=== PATIENT | male | born 1970 | race Caucasian/White ===

== ENCOUNTER 2023-07-10 18:26 | Emergency (ER) | payer OTHER, SELFPAY ==
[2023-07-10 18:32] VITALS: BP 112/78; PULSE 118; RESP 20; TEMP 36.5; O2SAT 99
[2023-07-10] MEDS: FLUORESCEIN SOD 1 MG/STRIP EACH EYE (20:16)
[2023-07-10] MEDS: TETRACAINE HCL 0.5% OPHTH SOLN 4 ML BTL 1 DROP EACH EYE (20:17)
--- NOTE | 2023-07-10 20:18 | ED.EYEPROB ---
HPI - Eye Problem General Chief complaint: Eye Problems Stated complaint: left eye Time Seen by Provider: 07/10/23 19:32 History of Present Illness HPI Narrative: Patient is a 53-year-old male presenting with left eye pain. Patient states that he was poked in the eye by a 4-year-old with very long nails. He was seen by urgent care yesterday and diagnosed with a corneal abrasion. He was prescribed eyedrops which she has been using as prescribed. States that he continues to have pain and significant photosensitivity. He has an appointment with ophthalmology in 2 days. States that he continues to have blurry vision. No other injuries or complaints. Related Data Allergies Allergy/AdvReac Type Severity Reaction Status Date / Time No Known Allergies Allergy Verified 07/10/23 18:27 Review of Systems Review of Systems: All systems reviewed & are unremarkable except as noted in HPI and below Exam Narrative: GENERAL: Well-appearing, uncomfortable secondary to ocular pain HEAD: Normocephalic, atraumatic. EYES: Left conjunctive a injected, tearful with the lights on, pupils are equal and reactive bilaterally ENT: No gross abnormalities CHEST: No respiratory distress. HEART: Regular rate and rhythm ABDOMEN: Nondistended EXTREMITIES: Normal range of motion SKIN: Dry NEURO: Alert and oriented x3. PSYCH: Normal mood and affect. Course Vital Signs Vital signs: Vital Signs Temperature 97.7 F 07/10/23 18:32 Pulse Rate 118 H 07/10/23 18:32 Respiratory Rate 20 07/10/23 18:32 Blood Pressure 112/78 07/10/23 18:32 Pulse Oximetry 99 07/10/23 18:32 Oxygen Delivery Room Air 07/10/23 18:32 Temperature 98.0 F 07/10/23 21:06 Pulse Rate 86 07/10/23 21:06 Respiratory Rate 17 07/10/23 21:06 Blood Pressure 138/86 07/10/23 21:06 Pulse Oximetry 99 07/10/23 21:06 Oxygen Delivery Room Air 07/10/23 18:32 MDM - Eye Problem MDM Narrative Medical decision making narrative: Patient is a 53-year-old male presenting with persistent eye pain in the setting of corneal abrasion. Fluorescein exam confirms corneal abrasion just medial to the left pupil. Patient already has ofloxacin drops. Also give him some erythromycin ointment for further lubrication and prevention of infection as the abrasion is rather sizable. We will also give him some diclofenac ophthalmic drops for his severe pain. He already has an appointment with his package maker in 2 days. Strongly advised that he keep this appointment. Strict return precautions given. Patient voiced understanding and is agreeable with plan. Discharged in stable condition. Differential Diagnosis Differential diagnosis: Likely corneal abrasion, conjunctivitis, acute iritis, periorbital cellulitis and corneal ulcer Medical Records Attestation: I reviewed the patient's medical records. Critical Care Time Critical Care Time Critical Care Time: No Discharge Plan Discharge Clinical Impression: Corneal abrasion Patient Disposition: Home, Self-Care Condition: Stable Instructions: Antibiotic Form, Corneal Abrasion (DC) Additional Instructions: Continue taking the drops that you were prescribed by urgent care. We have provided eyedrops for pain -you may use this by instilling 1 to 2 drops into your left eye every 6 hours for the next 2 to 3 days. We have also provided an ointment to be used to prevent infection. Please apply this every six hours for the next 2 days. Please make sure to keep the appointment with your eye doctor. If your symptoms worsen, you develop chest pain, shortness of breath, numbness or weakness, vomiting, fevers >100.4F, or other concerning symptoms arise, please return to the ER. Follow-up/Referrals: UNKNOWN,DOCTOR [Primary Care Provider] -
[2023-07-10] MEDS: ERYTHROMYCIN OPHTH OINTMENT 1 GM TUBE 1 APPLIC EACH EYE (21:00)
[2023-07-10] MEDS: DICLOFENAC SODIUM 0.1% OPHTH SOLN 2.5 ML BOTTLE 1 DROP LEFT EYE (21:00)
[2023-07-10 21:06] VITALS: BP 138/86; PULSE 86; RESP 17; TEMP 36.7; O2SAT 99
== END 2023-07-10 21:07 | disposition home or self-care (01) ==
PROVIDERS: Emergency Provider Emergency Medicine
DX: S05.02XA Injury of conjunctiva and corneal abrasion without foreign body, left eye, initial encounter (principal); W51.XXXA Accidental striking against or bumped into by another person, initial encounter
CPT/HCPCS: 99283; A9270

== ENCOUNTER 2023-08-10 16:50 | Emergency (ER) | payer OTHER, SELFPAY ==
--- NOTE | ~2023-08-10 | XR_ITS ---
EXAMINATION: XR foot RT min 3V DATE: 08/10/2023 18:04 INDICATION: Diabetic ulcer TECHNIQUE: Dorsoplantar, two oblique and lateral views of the right foot were obtained. COMPARISON: None. FINDINGS: Alignment is normal. No fracture. No cortical erosions or periostitis to suggest osteomyelitis. Sawyer ening of the articular surface of the head of the second metatarsal with subtle underlying subarticul ar sclerosis suggestive of osteonecrosis/Freiberg's infraction. Mild polyarticular osteoarthritis at the first metatarsophalangeal and a few tarsometatarsal and interphalangeal joints. Soft tissues are unremarkable. No evident soft tissue gas or radiopaque foreign bodies. IMPRESSION: 1. No soft tissue gas or findings to suggest osteomyelitis. 2. 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 Line 3. Mild polyarticular osteoarthritis in the mid and forefoot. Reviewed, dictated and finalized at location A. IMPRESSION: 1. No soft tissue gas or findings to suggest osteomyelitis. 2. Likely chronic osteonecrosis (Freiberg's infraction) at the head of the se[place] metatarsal. Line 3. Mild polyarticular osteoarthritis in the mid and forefoot.
[2023-08-10 16:53] VITALS: BP 141/76; PULSE 110; RESP 16; TEMP 36.6; O2SAT 100
--- NOTE | 2023-08-10 17:38 | ED.GENADULT ---
HPI - General Adult General Chief complaint: Wound/Laceration Stated complaint: infection in right foot Time Seen by Provider: 08/10/23 16:59 History of Present Illness HPI narrative: 53-year-old male with insulin-dependent diabetic presents emergency department for evaluation of swelling of his foot and second toe on the right foot. Related Data Home Medications Medication Instructions Recorded Confirmed insulin aspart U-100 100 unit/mL See Rx Instructions .Route .COMPLEX 08/13/23 08/14/23 subcutaneous solution insulin glargine 100 unit/mL 30 unit subcut DAILY 08/13/23 08/14/23 subcutaneous solution (Lantus U-100 Insulin) Allergies Allergy/AdvReac Type Severity Reaction Status Date / Time No Known Allergies Allergy Verified 08/14/23 11:22 Review of Systems Review of Systems: All systems reviewed & are unremarkable except as noted in HPI and below PMFSH Past Medical History Medical History Pancreatitis Type 1 diabetes mellitus on insulin therapy Surgical History Surgical History History of laparoscopic cholecystectomy Social History Social History Smoking packs per day: 0.5 Smoking cigarettes per day: 10.0 Years smoked: 40 Smoking pack-years: 20.00 Smoking status: Current every day smoker Alcohol intake: never Other substance usage details: gummy occasionally Lack of Transportation: YES Lack of Food: Never True Current Housing: I Have Housing Concerned About Future Housing: No Difficulty Paying Gas/Electric Bills: No Difficulty Paying for Meds: No Currently Unemployed: No Education: Associate Degree Difficulty w/ Childcare or Family Care: No Spiritual care concerns: No Exam Narrative: APPEARANCE: Well appearing, no pain, no distress, well-nourished. HEAD: normocephalic, atraumatic. EYES: PERRLA/EOMI, conjunctivae clear. NOSE: Normal no drainage NECK: Supple. No adenopathy, no masses. RESPIRATORY: Airway patent, respirations nonlabored. Clear to auscultation bilaterally, no rales, rhonchi, wheezing. CARDIOVASCULAR: Regular rate and rhythm without murmurs rubs or gallops. ABDOMINAL: Soft, nontender, nondistended, normal bowel sounds MUSCULOSKELETAL: Moves all extremities. Strength/ROM intact, No edema, No calf tenderness. NEURO: Alert. Cranial nerves II through XII intact. Good gait. Good coordination SKIN: Erythema of second toe on right foot Course Course Emergency Course: 53-year-old male present emerged department for evaluation of a diabetic foot ulcer. Patient was offered admission but declined. Patient was warned of the risk of potentially losing the toe as he did not receive multiple days of antibiotics and patient still preferred to decline. Patient was provided follow-up with Dr. Costa since the patient is from out [facility]. Patient was treated with IV clindamycin in the emergency department and discharged home with clindamycin. Patient's blood sugar was 500 and did improve to 300 with IV fluids and insulin. Vital Signs Vital signs: Vital Signs Temperature 97.8 F 08/10/23 16:53 Pulse Rate 110 H 08/10/23 16:53 Respiratory Rate 16 08/10/23 16:53 Blood Pressure 141/76 H 08/10/23 16:53 Pulse Oximetry 100 08/10/23 16:53 Oxygen Delivery Room Air 08/10/23 16:53 Temperature 97.8 F 08/10/23 16:53 Pulse Rate 110 H 08/10/23 16:53 Respiratory Rate 16 08/10/23 16:53 Blood Pressure 141/76 H 08/10/23 16:53 Pulse Oximetry 100 08/10/23 16:53 Oxygen Delivery Room Air 08/10/23 16:53 Medical Decision Making Differential Diagnosis Differential Diagnosis: Osteomyelitis, cellulitis, diabetic ulcer, hypoglycemia Vital Signs Vital Signs: Vital Signs Temperature 97.8 F 08/10/23 16:53 Pulse Rate 110 H 08/10/23 16:53 Respiratory Rate 16
[2023-08-10 17:42] LABS: Basophils Absolute Auto 0.1 K/mm3 (0.0-0.1); Basophils Percent Auto 0.3 % (0.2-1.2); Eosinophils Absolute Auto 0.1 K/mm3 (0-0.3); Eosinophils Percent Auto 0.7 % (0-4.4); Hematocrit 43.4 % (42.0-52.0); Hemoglobin 14.1 g/dL (14.0-18.0); Immature Granulocyte Absolute 0.12 K/mm3 (0.00-0.031); Immature Granulocyte Percent A 0.8 % (0-0.5); Lymphocytes Absolute Auto 1.55 K/mm3 (0.9-3.2); Lymphocytes Percent Auto 9.8 % (18.3-44.2); Mean Corpuscular HGB Conc 32.5 g/dl (32-36); Mean Corpuscular Hemoglobin 30.1 pg (26-34); Mean Corpuscular Volume 92.7 fl (80-100); Mean Platelet Volume 9.6 fl (7.4-10.4); Monocytes Absolute Auto 0.7 K/mm3 (0.1-0.6); Monocytes Percent Auto 4.4 % (2.6-8.5); Neutrophils Absolute Auto 13.3 K/mm3 (1.3-6.7); Platelet Count Result 650 k/mm3 (150-375); Red Blood Count 4.68 M/mm3 (4.6-6.20); Red Cell Distribution Width 12.8 % (11.5-14.5); White Blood Count 15.8 K/mm3 (4.5-10.0)
[2023-08-10] MEDS: CLINDAMYCIN 600 MG/D5W 50 ML 600 MG/50 ML PIGGYBACK 100 MG IVPB (17:46)
[2023-08-10 17:56] LABS: Prothrombin Time 13.7 Seconds (11.1-14.7)
[2023-08-10 17:57] LABS: Partial Thromboplastin Time 31.9 SECONDS (22.3-36.8)
[2023-08-10 18:06] LABS: Lactic Acid Reflex 1.3 mmol/L (0.7-2.0)
[2023-08-10 18:10] LABS: Alanine Aminotransferase 22 U/L (6-50); Albumin Level 4.3 g/dL (3.5-5.1); Alkaline Phosphatase 99 U/L (38-126); Anion Gap 7 mmol/L (8-16); Aspartate Amino Transferase 32 U/L (17-59); Bilirubin,Total 1.3 mg/dL (0.2-1.3); Blood Urea Nitrogen 23 mg/dL (9-20); Calcium 9.3 mg/dL (8.4-10.2); Carbon Dioxide 31 mmol/L (22-30); Chloride 92 mmol/L (98-107); Estimated CRCL calculation 86 ml/min; Estimated Glomerular Filt Rate > 60; Glucose 537 mg/dL (65-110); Potassium 4.7 mmol/L (3.4-5.0); Sodium 130 mmol/L (137-145)
[2023-08-10] MEDS: SODIUM CHLORIDE 0.9% IV 1,000 ML 999 ML IV CONT (18:23)
[2023-08-10] MEDS: INSULIN HUMAN REGULAR (*BKC) 100 UNITS/ML 7 UNITS IV PUSH (18:24)
[2023-08-10 18:51] LABS: Hemoglobin A1C 10.9 % (<5.7)
--- NOTE | 2023-08-10 19:17 | PC.NURSE ---
Assumed care of pt from SANG Conde at this time.
[2023-08-10 19:25] LABS: Glucose Point of Care 315 mg/dl (65-105)
== END 2023-08-10 19:45 | disposition home or self-care (01) ==
PROVIDERS: Emergency Provider Emergency Medicine
DX: E10.628 Type 1 diabetes mellitus with other skin complications (principal); L03.115 Cellulitis of right lower limb; F17.210 Nicotine dependence, cigarettes, uncomplicated; Z90.49 Acquired absence of other specified parts of digestive tract; Z79.4 Long term (current) use of insulin
CPT/HCPCS: 36415; 73630; 80053; 82948; 83036; 83605; 85025; 85610; 85730; 96361; 96365; 96375; 99284; J1815; J7030

== ENCOUNTER 2023-08-13 22:23 | Inpatient (IN) | payer OTHER, SELFPAY ==
--- NOTE | ~2023-08-13 | US_ITS ---
Limited Abdominal Sonogram: Real-time sonographic imaging of the right upper quadrant was performed. Clinical History: Elevated liver enzymes Findings: The liver appears normal with no evidence of mass lesion or bile duct dilatation. Main por robert vein demonstrates normal direction of flow. The gallbladder is absent, compatible prior cholecyst ectomy. The common bile duct measures 5 mm. The visualized pancreas, aorta, and IVC are unremarkable . Impression: Status post cholecystectomy, otherwise unremarkable exam. Reviewed, dictated and finalized at location M. Impression: Status post cholecystectomy, otherwise unremarkable exam.
--- NOTE | ~2023-08-13 | CT_ITS ---
CT scan of the right lower extremity Clinical history of toe ulcer, osteomyelitis TECHNIQUE: Following intravenous administration of 100 cc of Omnipaque 350 contrast material, axial i maging of the right lower extremities were performed from the level of the distal femur through the f oot. Sagittal and coronal reformatted images were constructed. Dose reduction technique was used on t his scan by utilizing automated exposure control and iterative reconstruction technique. The dose-erik gth product (DLP) was 1624.56 mGy-cm. Findings: There is soft tissue ulcer and/or soft tissue gas in the plantar aspect of the second toe a t the level of middle phalanx. No discrete fluid collection/abscess evident otherwise. There is mild diffuse subcutaneous soft tissue edema in the visualized right lower extremity. Osseous structures are intact. No destructive change or periosteal reaction seen. Joint spaces are pr eserved. No fracture or dislocation seen. Visualized musculature appears unremarkable. IMPRESSION: No CT evidence for osteomyelitis. MRI and/or 3 phase bone scan could be considered for more sensitive evaluation for early osteomyelitis. Soft tissue ulceration and/or soft tissue gas in the plantar aspect of the second toe at the level of the middle phalanx. No drainable abscess evident. Reviewed, dictated and finalized at [facility]. IMPRESSION: No CT evidence for osteomyelitis. MRI and/or 3 phase bone scan could be conside red for more sensitive evaluation for early osteomyelitis. Soft tissue ulceration and/or soft tissue gas in the plantar aspect of the [place] toe at the level of the middle phalanx. No drainable abscess evident.
--- NOTE | ~2023-08-13 | CT_ITS ---
EXAMINATION: CT abdomen pelvis wo con DATE: 08/14/2023 14:40 INDICATION: Pancreatitis. TECHNIQUE: Computed tomography (CT) of the abdomen and pelvis was performed without intravenous contr ast. Automated exposure control and iterative reconstruction technique were employed. The dose-length product was 287.78 mGy-cm. COMPARISON: None. FINDINGS: The visualized portions of the lung bases demonstrate mild atelectasis. No pleural effusion . The heart size is normal. No pericardial effusion. The liver is normal. There are changes of cholec ystectomy. The spleen is normal. There is a calcification in the pancreas, consistent with chronic pa ncreatitis. The adrenal glands and kidneys are normal. The prostate is mildly enlarged. There are no dilated loops of bowel. There are no pathologically enlarged lymph nodes. There is no free intraperit breen fluid. There is mild thoracic and lumbar spondylosis. There is mild chronic height loss of T11 vertebral body. IMPRESSION: 1. Calcification in the pancreas, consistent with chronic pancreatitis. No specific evidence of acute pancreatitis. Reviewed, dictated and finalized at location E. IMPRESSION: 1. Calcification in the pancreas, consistent with chronic pancreatitis. No spec ific evidence of acute pancreatitis.
--- NOTE | ~2023-08-13 | XR_ITS ---
Clinical Indication: Sepsis AP and lateral views of the chest: Comparison: None Findings: The lungs are clear, without evidence of focal consolidation or pleural effusion. Cardiome diastinal silhouette is within normal limits. Bones and soft tissues are unremarkable. Impression: Normal chest. Reviewed, dictated and finalized at location . Impression: Normal chest.
[2023-08-13 22:26] VITALS: BP 108/82; PULSE 119; RESP 16; TEMP 36.9; O2SAT 98
[2023-08-13 23:22] LABS: Basophils Absolute Auto 0.1 K/mm3 (0.0-0.1); Basophils Percent Auto 0.4 % (0.2-1.2); Eosinophils Absolute Auto 0.1 K/mm3 (0-0.3); Eosinophils Percent Auto 0.6 % (0-4.4); Hematocrit 42.8 % (42.0-52.0); Hemoglobin 14.1 g/dL (14.0-18.0); Immature Granulocyte Absolute 0.09 K/mm3 (0.00-0.031); Immature Granulocyte Percent A 0.5 % (0-0.5); Lymphocytes Absolute Auto 1.78 K/mm3 (0.9-3.2); Mean Corpuscular HGB Conc 32.9 g/dl (32-36); Mean Corpuscular Hemoglobin 29.6 pg (26-34); Mean Corpuscular Volume 89.9 fl (80-100); Mean Platelet Volume 9.1 fl (7.4-10.4); Monocytes Absolute Auto 1.7 K/mm3 (0.1-0.6); Monocytes Percent Auto 8.3 % (2.6-8.5); Neutrophils Absolute Auto 16.1 K/mm3 (1.3-6.7); Neutrophils Percent Auto 81.2 % (45.5-73.1); Platelet Count Result 716 k/mm3 (150-375); Red Blood Count 4.76 M/mm3 (4.6-6.20); Red Cell Distribution Width 12.5 % (11.5-14.5); White Blood Count 19.8 K/mm3 (4.5-10.0)
--- NOTE | 2023-08-13 23:31 | ECG_ITS ---
Measurements Intervals [place] Rate: 102 P: 73 HI: 168 QRS: -1 QRSD: 123 T: 70 QT: 327 QTc: 427 Interpretive Statements SINUS TACHYCARDIA RIGHT BUNDLE-BRANCH BLOCK NONSPECIFIC ST ABNORMALITY ABNORMAL ECG NO PREVIOUS ECG AVAILABLE FOR COMPARISON Electronically Signed On 08-14-2023 9:02:23 CDT by Fab Ricks M.D.
[2023-08-13 23:36] LABS: Alanine Aminotransferase 22 U/L (6-50); Albumin Level 4.3 g/dL (3.5-5.1); Alkaline Phosphatase 85 U/L (38-126); Anion Gap 7 mmol/L (8-16); Aspartate Amino Transferase 24 U/L (17-59); Blood Urea Nitrogen 22 mg/dL (9-20); Calcium 9.5 mg/dL (8.4-10.2); Carbon Dioxide 34 mmol/L (22-30); Chloride 91 mmol/L (98-107); Estimated CRCL calculation 96 ml/min; Estimated Glomerular Filt Rate > 60; Glucose 393 mg/dL (65-110); Potassium 3.7 mmol/L (3.4-5.0); Sodium 132 mmol/L (137-145)
[2023-08-13 23:50] VITALS: BP 123/73; PULSE 102; RESP 14; O2SAT 100
[2023-08-14] VITALS (18 sets, daily range): BP systolic 107–136; BP diastolic 54–95; PULSE 80–102; RESP 11–19; TEMP 36.7–37.2; O2SAT 93–99
--- NOTE | 2023-08-14 00:04 | ED.GENADULT ---
HPI - General Adult General Chief complaint: Extremity Problem,Nontraumatic <Arjun Fonseca PA-C - Last Filed: 08/14/23 03:51> Stated complaint: right foot infection with worsening pain <KIM River Last Filed: 08/14/23 03:51> Time Seen by Provider: 08/13/23 23:28 <KIM River Last Filed: 08/14/23 03:51> Source: patient <KIM River Last Filed: 08/14/23 03:51> Mode of arrival: ambulatory <KIM River Last Filed: 08/14/23 03:51> Limitations: no limitations <KIM River Last Filed: 08/14/23 03:51> History of Present Illness HPI narrative: This is a 53-year-old male who presents to the ED with chief complaint of right toe infected ulcer on going for the past several days. Patient was seen in this ER 3 days ago and was recommended to get admitted for infected diabetic foot ulcer but did not want to be admitted. Patient states the pain in the right foot is worsening and he has streaking up the right leg now. Denies fevers, chills, nausea, vomiting. States he has been taking his insulin for insulin-dependent diabetes. <KIM River Last Filed: 08/14/23 03:51> Related Data Home medications: Home Medications Medication Instructions Recorded Confirmed insulin aspart U-100 100 unit/mL 7 unit 08/13/23 subcutaneous solution insulin glargine 100 unit/mL unit subcut 08/13/23 subcutaneous solution (Lantus U-100 Insulin) <KIM River Last Filed: 08/14/23 03:51> Allergies/adverse reactions: Allergies Allergy/AdvReac Type Severity Reaction Status Date / Time No Known Allergies Allergy Verified 08/13/23 22:23 <KIM River Last Filed: 08/14/23 03:51> Review of Systems Review of Systems: All systems as dictated in HPI <KIM River Last Filed: 08/14/23 03:51> Exam Narrative: GENERAL: Well-appearing, well-nourished, and in no acute distress. HEAD: Normocephalic, atraumatic. EYES: PERRLA and EOMI. ENT: Nares clear, no rhinorrhea or epistaxis. Mucous membranes moist. Oropharynx without tonsillar hypertrophy exudate or other lesions. NECK: Supple. No adenopathy or masses. CHEST: No respiratory distress. Clear to auscultation. No wheezes rales or rhonchi HEART: Tachycardic rate, regular rhythm. No murmur heard. Normal peripheral pulses. ABDOMEN: Soft, nontender, nondistended, normal active bowel sounds. MSK: Normal range of motion. Mild edema to the right ankle. Tenderness throughout the right calf. SKIN: Redness diffusely throughout the right second toe with medial ulceration with purulent discharge. Ulcer is stage III. There is erythematous streaking up the foot into the ankle. No crepitus and no necrotic tissue noted. NEURO: Alert and oriented x3. No focal deficits. PSYCH: Normal mood and affect. <Arjun Fonseca PA-C - Last Filed: 08/14/23 03:51> Course BACKHAUL DRIVER/PA Physician Supervision I saw and evaluated the patient. I agree with the findings and plan of care as documented in the BACKHAUL DRIVER/PAs note. Patient was given another dose of pain medication. Patient was signed out to me by MLP pending CT scan which doesn't show evidence of osteomyelitis but is concerning for soft tissue gas. Based on these findings, I admitted to Hospitalist Dr. Whitley via phone communication at approximately 08:20. Surgeon Dr. Cunha was paged at 08:20 and 08:50 for consideration of intervention/debridement. Patient spoke with on-coming attending shortly thereafter and received verbal info about consult. <Mercy Santos MD - Last Filed: 08/14/23 09:24> Vital Signs Vital signs: Vital Signs Temperature 98.4 F 08/13/23 22:26 Pulse Rate 119 H 08/13/23 22:26 Respiratory Rate 16 08/13/23 22:26 Blood Pressure 108/82 08/13/23 22:26 Pulse Oximetry 98 08/13/23 22:26 Oxygen Delivery Room Air 08/13/23 22:26 Temperature 98.4 F 08/13/23 22:26 Pulse Rate 80 10/
[2023-08-14 00:48] LABS: Lactic Acid Reflex 1.9 mmol/L (0.7-2.0)
[2023-08-14] MEDS: SODIUM CHLORIDE 0.9% IV 1,000 ML 999 ML IV CONT ×2 (01:14→01:15)
[2023-08-14] MEDS: ONDANSETRON INJ 4 MG/2 ML VIAL IV PUSH ×3 (01:15→11:29)
[2023-08-14] MEDS: MORPHINE SULFATE (*CRX) 4 MG/ML INJ IV PUSH ×2 (01:15→05:08)
[2023-08-14] MEDS: CEFEPIME 2 GM/NS 50 ML 2 GM/50 ML BAG IVPB (01:50)
[2023-08-14] MEDS: metroNIDAZOLE 500 MG/ISO 100ML 500 MG/100 ML BAG 100 MG IVPB ×4 (02:12→20:41)
[2023-08-14 02:14] LABS: Appearance Urine Clear (Clear); Bilirubin Urine Negative (Negative); Blood Urine Negative (Negative); Color Urine Yellow (Yellow); Glucose Urine UA 3+ mg/dL (Negative); Ketones Urine Trace mg/dL (Negative); Leukocyte Esterase Ur Negative LEU/UL (Negative); Nitrate Urine Negative (Negative); Protein Urine Negative (Negative)
[2023-08-14 02:15] LABS: Specific Grav Ur 1.072 (1.001-1.035)
[2023-08-14 02:16] LABS: Add Urine Microscopic? NO
[2023-08-14 02:26] LABS: INR 1.1; Prothrombin Time 14.9 Seconds (11.1-14.7)
[2023-08-14 02:27] LABS: Partial Thromboplastin Time 32.1 SECONDS (22.3-36.8)
[2023-08-14] MEDS: CLINDAMYCIN 300 MG in DEXTROSE 5% IN WATER 50 ML 104 MG IVPB ×2 (09:19→17:45)
--- NOTE | 2023-08-14 09:54 | ADMGEN ---
This patient, Ulices Sosa, was admitted to 2 Medical Room 261-01. Patient/family oriented to hospital policies and general routines including ID bracelet, bed and alarms, visiting hours, pain management, procedures, bathroom and other care routines, personal items, smoking policy, room service/diet, and visiting hours. Information on how to activate the Rapid Response Team has been discussed. Patient/Family are encouraged to report perceived risks to care and to ask questions if they do not understand what they are told or what they should do.
[2023-08-14] MEDS: SODIUM CHLORIDE 0.9% IV 1,000 ML 70 ML IV CONT ×2 (10:12→20:41)
--- NOTE | 2023-08-14 11:03 | PM.CNGS ---
Assessment and Plan Assessment and plan (1) Diabetic infection of right foot: Code(s): E11.628 - Type 2 diabetes mellitus with other skin complications; L08.9 - Local infection of the skin and subcutaneous tissue, unspecified Status: Acute Assessment and Plan: Patient presents with an infected diabetic ulcer of the medial right 2nd toe. CT of the right foot with no evidence of osteomyelitis, but suggests a soft tissue ulceration and/or soft tissue gas in the plantar aspect of the second toe at the level of the middle phalanx. The wound is foul smelling with necrotic tissue and does tunnel on the plantar aspect of the middle phalanx. Will initiate local wound care with gauze dressing changes and discuss the case with Dr. Cunha. He is currently on IV vancomycin and metronidazole. He received one dose of cefepime and clindamycin in the ER, will discuss antibiotics with Dr. Cunha as well. I will keep him NPO until I know further plans for possible debridement. (2) Sepsis: Code(s): A41.9 - Sepsis, unspecified organism Status: Acute Assessment and Plan: Presented with tachycardia and leukocytosis in the setting of known infection. His blood cultures are pending and he had a wound culture done in the ER, which is pending. He does not appear septic at the time of my exam. His heart rate improved and he is afebrile. (3) Abdominal pain: Code(s): R10.9 - Unspecified abdominal pain Status: Acute Assessment and Plan: Workup pending. His main complaint at this time is abdominal pain and the Hospitalist has ordered a lipase and CT abdomen/pelvis given his hx of pancreatitis. (4) Type 1 diabetes mellitus on insulin therapy: Code(s): E10.9 - Type 1 diabetes mellitus without complications Status: Chronic Assessment and Plan: Uncontrolled IDDM with hgbA1C 10.9. Discussed importance of glycemic control in this setting. Management per primary service. History of Present Illness Consult details Consult date: 08/14/23 Reason for consult: other (Diabetic foot infection) Requesting physician: Erlin Patricia MD Narrative: This is a 53-year-old man with a history of type 1 insulin-dependent diabetes mellitus, who we have been asked to see in consultation for diabetic foot infection. He initially presented to the ER 4 days ago with complaints of a right toe wound. He reportedly pulled off a callus from his right second medial toe about a week and half ago. Shortly after, he began to notice some redness and swelling of that toe. He came into the ER on 08/10 and refused admission at that time. His glucose was in the 500s, [place] 48792, and his hemoglobin A1c was 10.9. They treated his hyperglycemia and gave him a dose of IV clindamycin and discharged him on oral clindamycin. He reports taking the antibiotic as prescribed without missing any doses. Denies fever or chills. He noticed increased swelling and redness spreading up his right foot, therefore he presented back to the ER last night. Labs showed his white blood cell count was up to 19,800. Glucose was 393 and CRP 3.0. Lactic acid 1.9. In the ER, his heart rate was 119 and he was afebrile and otherwise hemodynamically stable. His heart rate has since improved and is now in the 90s. He was given a dose of IV clindamycin, cefepime, metronidazole, and vancomycin in the ER. He was admitted to the hospitalist. Our service was consulted for the diabetic foot wound. He is now seen on the medical floor. His main complaint at this time is upper abdominal pain mostly in the epigastric area. 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 He had a cholecystectomy and denies heavy alcohol use. He reports they have been unable to find any etiology for his pancreatitis. His last episode was about a year and half ago. He typically lives in [facility], and is manpreet
[2023-08-14 11:09] LABS: Lipase 519 U/L (23-300)
[2023-08-14] MEDS: MORPHINE SULFATE (*CRX) 2 MG/ML INJ IV PUSH ×2 (11:32→16:00)
--- NOTE | 2023-08-14 14:04 | PM.IMHP ---
H&P: HPI History of Present Illness Date/Time: 08/14/23 14:04 Chief Complaint: Toe Wound Narrative: 53-year-old male presents here with infected 2nd toe with past medical history of type 1 diabetes and pancreatitis. Patient returns to the ED with a right 2nd toe infection. Patient was seen on Saturday, 08/10, for same complaint and was offered admission but patient declined. Started on IV clindamycin, transitioned to p.o. clindamycin. Patient continues to have pain, foul odor from toe, swelling. States that the wound initially started as a callus that he accidentally bumped, tearing the area, and then he pulled off the skin. Poor control of diabetes currently. Patient reports that he has been unable to get a monitor and transmitter to accompany his insulin pump, which is not currently set up. Reports insurance is not currently covering the monitor or transmitter. Has a tandem pump. 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 Sees laboratory animal caretaker back home, last seen 7 months ago. patient reports blood sugars have been up and down with lowest reading being 40 and highest reading being 530. also experiencing some nausea, vomiting, upper abdominal pain. Last pancreatitis flare around a year ago. Reports the occasional drink. Review of Systems Review of Systems: All systems reviewed & are unremarkable except as noted in HPI and below PMFSH Past Medical History Medical History Pancreatitis Type 1 diabetes mellitus on insulin therapy Surgical History Surgical History History of laparoscopic cholecystectomy Social History Social History (Updated 08/15/23 @ 00:08 by Odalys Allison APRN) Social History: Currently lives with his girlfriend and her children. Surrogate decision maker: Vicenta Wilks, girlfriend. Code Status: Full Code. Smoking packs per day: 0.5 Smoking cigarettes per day: 10.0 Years smoked: 40 Smoking pack-years: 20.00 Smoking status: Current every day smoker Alcohol intake: never Other substance usage details: gummy occasionally Lack of Transportation: YES Lack of Food: Never True Current Housing: I Have Housing Concerned About Future Housing: No Difficulty Paying Gas/Electric Bills: No Difficulty Paying for Meds: No Currently Unemployed: No Education: Associate Degree Difficulty w/ Childcare or Family Care: No Spiritual care concerns: No Meds Home Medications and Allergies Home Medications Medication Instructions Recorded Confirmed Type clindamycin HCl 300 mg capsule 300 mg PO Q6H 7 days #28 caps 08/10/23 08/13/23 Rx insulin aspart U-100 100 unit/mL See Rx Instructions .Route .COMPLEX 08/13/23 08/14/23 History subcutaneous solution insulin glargine 100 unit/mL 30 unit subcut DAILY 08/13/23 08/14/23 History subcutaneous solution (Lantus U-100 Insulin) Allergies Allergy/AdvReac Type Severity Reaction Status Date / Time No Known Allergies Allergy Verified 08/14/23 11:22 Vital Signs Vital Signs - 24 hr 08/13/23 22:26 08/13/23 23:50 08/14/23 00:01 Temperature 98.4 F Pulse Rate 119 H 102 H 101 H Respiratory Rate 16 14 17 Blood Pressure 108/82 123/73 123/72 Pulse Oximetry 98 100 99 Oxygen Delivery Room Air 08/14/23 01:20 08/14/23 01:31 08/14/23 01:46 Temperature Pulse Rate 101 H 94 98 Respiratory Rate 11 L 17 18 Blood Pressure 112/86 118/75 128/85 Pulse Oximetry 99 95 97 Oxygen Delivery 08/14/23 02:01 08/14/23 02:16 08/14/23 03:36 Temperature Pulse Rate 102 H 101 H 97 Respiratory Rate 16 17 18 Blood Pressure 135/88 136/86 111/71 Pulse Oximetry 96 98 97 Oxygen Delivery 08/14/23 05:31 08/14/23 02:31 08/14/23 02:46 Temperature Pulse Rate 91 99 97 Respiratory Rate 16 17 18 Blood Pressure 107/85 122/79 118/74 Pulse Oximetry 96 97 Oxygen Delivery
[2023-08-14 16:50] LABS: Glucose Point of Care 279 mg/dl (65-105)
[2023-08-14] MEDS: INSULIN ASPART (*BKC) 100 UNITS/ML SUB-Q ×2 (17:03→17:04)
[2023-08-14 20:34] LABS: Glucose Point of Care 184 mg/dl (65-105)
[2023-08-14] MEDS: HYDROcodone/acetaminophen (*CRX) 5-325 MG TABLET 1 TAB PO (20:50)
[2023-08-14] MEDS: INSULIN GLARGINE (*BKC) 100 UNITS/ML 14 UNITS SUB-Q (20:58)
[2023-08-15] VITALS (8 sets, daily range): BP systolic 101–126; BP diastolic 53–75; PULSE 85–95; RESP 16–18; TEMP 36.7–37.8; O2SAT 96–97
[2023-08-15] MEDS: CLINDAMYCIN 300 MG in DEXTROSE 5% IN WATER 50 ML 104 MG IVPB ×2 (00:41→04:55)
[2023-08-15] MEDS: metroNIDAZOLE 500 MG/ISO 100ML 500 MG/100 ML BAG 100 MG IVPB ×3 (04:55→21:47)
[2023-08-15] MEDS: MORPHINE SULFATE (*CRX) 2 MG/ML INJ IV PUSH (05:01)
[2023-08-15 05:11] LABS: Basophils Percent Auto 0.3 % (0.2-1.2); Eosinophils Absolute Auto 0.2 K/mm3 (0-0.3); Hematocrit 40.7 % (42.0-52.0); Hemoglobin 13.1 g/dL (14.0-18.0); Immature Granulocyte Absolute 0.07 K/mm3 (0.00-0.031); Immature Granulocyte Percent A 0.5 % (0-0.5); Lymphocytes Absolute Auto 1.56 K/mm3 (0.9-3.2); Lymphocytes Percent Auto 10.2 % (18.3-44.2); Mean Corpuscular HGB Conc 32.2 g/dl (32-36); Mean Corpuscular Hemoglobin 28.9 pg (26-34); Mean Corpuscular Volume 89.8 fl (80-100); Mean Platelet Volume 9.2 fl (7.4-10.4); Monocytes Absolute Auto 1.3 K/mm3 (0.1-0.6); Monocytes Percent Auto 8.2 % (2.6-8.5); Neutrophils Absolute Auto 12.2 K/mm3 (1.3-6.7); Neutrophils Percent Auto 79.8 % (45.5-73.1); Platelet Count Result 634 k/mm3 (150-375); Red Blood Count 4.53 M/mm3 (4.6-6.20); Red Cell Distribution Width 13.1 % (11.5-14.5); White Blood Count 15.3 K/mm3 (4.5-10.0)
[2023-08-15 05:29] LABS: Alanine Aminotransferase 164 U/L (6-50); Albumin Level 3.3 g/dL (3.5-5.1); Alkaline Phosphatase 146 U/L (38-126); Anion Gap 1 mmol/L (8-16); Aspartate Amino Transferase 119 U/L (17-59); Bilirubin,Total 0.9 mg/dL (0.2-1.3); Blood Urea Nitrogen 10 mg/dL (9-20); Calcium 8.5 mg/dL (8.4-10.2); Carbon Dioxide 32 mmol/L (22-30); Chloride 98 mmol/L (98-107); Estimated CRCL calculation 125 ml/min; Estimated Glomerular Filt Rate > 60; Glucose 186 mg/dL (65-110); Potassium 3.4 mmol/L (3.4-5.0); Sodium 131 mmol/L (137-145)
[2023-08-15 08:12] LABS: Glucose Point of Care 157 mg/dl (65-105)
--- NOTE | 2023-08-15 09:31 | PCWOUND ---
WOCN NOTE Received referral to see patient for toe wound. wound is being followed by general surgery and spoke to surgical WASHING AND SCREENING PLANT SUPERVISOR, wound is being followed and does not need wound care assessment at this time.
[2023-08-15] MEDS: HYDROcodone/acetaminophen (*CRX) 5-325 MG TABLET 1 TAB PO ×2 (09:49→17:45)
--- NOTE | 2023-08-15 10:04 | P.PNIM_ITS ---
Progress Note: A&P Assessment and Plan (1) Diabetic infection of right foot: Code(s): E11.628 - Type 2 diabetes mellitus with other skin complications; L08.9 - Local infection of the skin and subcutaneous tissue, unspecified Status: Acute (2) Abdominal pain: Code(s): R10.9 - Unspecified abdominal pain Status: Acute (3) Type 1 diabetes mellitus on insulin therapy: Code(s): E10.9 - Type 1 diabetes mellitus without complications Status: Chronic (4) Hyponatremia: Code(s): E87.1 - Hypo-osmolality and hyponatremia Status: Acute Plan Problem List 1. diabetic infection of right foot * general surgery consulted - Alphonse saw 08/15 * noting improvement in margins, may benefit from MRI or bone scan to rule out osteomylitis local wound care d/c vanc, clindamycin, continue flagyl and transition to oral when tolerating PO, start ceftriaxone 2 g risk for amputation - will continue to follow minor debridement may be required * Lower extremity CT No CT evidence for osteomyelitis. MRI and/or 3 phase bone scan could be considered for more sensitive evaluation for early osteomyelitis. Soft tissue ulceration and/or soft tissue gas in the plantar aspect of the second toe at the level of the middle phalanx. No drainable abscess evident. * elevated WBC, 19.8 and elevated platelet count, 716 * elevated CRP 3.0 * monitor labs * blood cultures (08/13) pending * wound culture - initial growth, pending formal result Few white blood cells seen Moderate gram negative bacilli Few gram positive cocci in chains 2. abdominal pain * US liver ordered 08/15 and hepatitis labs due to elevated liver enzymes - all normal * ?Abd/pelvis CT Calcification in the pancreas, consistent with chronic pancreatitis. No specific evidence of acute pancreatitis. * CXR: normal chest * EKG SINUS TACHYCARDIA RIGHT BUNDLE-BRANCH BLOCK NONSPECIFIC ST ABNORMALITY ABNORMAL ECG NO PREVIOUS ECG AVAILABLE FOR COMPARISON * lipase: 519 * AST/ALT elevated 119/164; AKP 146 * protein albumin low, likely chronically protein deficient * UA: specific gravity 1.07 to, 3+ glucose, trace ketones * PRN pain meds - tyl, norco, morphine * zofran PRN 3. type 1 diabetes, on insulin therapy * will start on clear liquids and advance as tolerated * hypoglycemia protocol * POC blood glucose ACHS * NovoLog 5 units TIDWM * correct regimen ordered - low dose TIDWM and HS * A1C 10.9 on 08/10/23 * home lantus 14 units HS continued * discussed monitor and transmitter with patient, patient has tandem pump. Patient may qualify for freestyle Abel 3. Discussed with patient in the morning. Per hospital educator may be beneficial to have patient reach out to his motor vehicle assembler to obtain this prescription due to probability of requiring prior auth. $75 per month [id number] if unable to obtain through endo provider. 4. hyponatremia * sodium 131 on 08/15, will start NaCL fluids continuously and continue to monitor Chronic Conditions - held p.o. clindamycin that was originally started in the emergency department for wound. - no other chronic conditions requiring medication/surveillance. Diet: diabetic consistent carb GI Prophylaxis: DVT Prophylaxis: TEDs, Enoxaparin 40 Lines: pIV Code Status: Full Code Subjective Date/time seen: 08/15/23 10:04 Interval history: Patient is 53 YO male admitted yesterday from the ER for worsening infection to
--- NOTE | 2023-08-15 10:04 | PM.IMPN ---
Progress Note: A&P Assessment and Plan (1) Diabetic infection of right foot: Code(s): E11.628 - Type 2 diabetes mellitus with other skin complications; L08.9 - Local infection of the skin and subcutaneous tissue, unspecified Status: Acute (2) Abdominal pain: Code(s): R10.9 - Unspecified abdominal pain Status: Acute (3) Type 1 diabetes mellitus on insulin therapy: Code(s): E10.9 - Type 1 diabetes mellitus without complications Status: Chronic (4) Hyponatremia: Code(s): E87.1 - Hypo-osmolality and hyponatremia Status: Acute Plan Problem List 1. diabetic infection of right foot general surgery consulted - Alphonse saw 08/15 noting improvement in margins, may benefit from MRI or bone scan to rule out osteomylitis local wound care d/c vanc, clindamycin, continue flagyl and transition to oral when tolerating PO, start ceftriaxone 2 g risk for amputation - will continue to follow minor debridement may be required Lower extremity CT No CT evidence for osteomyelitis. MRI and/or 3 phase bone scan could be considered for more sensitive evaluation for early osteomyelitis. Soft tissue ulceration and/or soft tissue gas in the plantar aspect of the second toe at the level of the middle phalanx. No drainable abscess evident. elevated WBC, 19.8 and elevated platelet count, 716 elevated CRP 3.0 monitor labs blood cultures (08/13) pending wound culture - initial growth, pending formal result Few white blood cells seen Moderate gram negative bacilli Few gram positive cocci in chains 2. abdominal pain US liver ordered 08/15 and hepatitis labs due to elevated liver enzymes - all normal ?Abd/pelvis CT Calcification in the pancreas, consistent with chronic pancreatitis. No specific evidence of acute pancreatitis. CXR: normal chest EKG SINUS TACHYCARDIA RIGHT BUNDLE-BRANCH BLOCK NONSPECIFIC ST ABNORMALITY ABNORMAL ECG NO PREVIOUS ECG AVAILABLE FOR COMPARISON lipase: 519 AST/ALT elevated 119/164; AKP 146 protein albumin low, likely chronically protein deficient UA: specific gravity 1.07 to, 3+ glucose, trace ketones PRN pain meds - tyl, norco, morphine zofran PRN 3. type 1 diabetes, on insulin therapy will start on clear liquids and advance as tolerated hypoglycemia protocol POC blood glucose ACHS NovoLog 5 units TIDWM correct regimen ordered - low dose TIDWM and HS A1C 10.9 on 08/10/23 home lantus 14 units HS continued discussed monitor and transmitter with patient, patient has tandem pump. Patient may qualify for freestyle Abel 3. Discussed with patient in the morning. Per public health educator may be beneficial to have patient reach out to his simplex operator to obtain this prescription due to probability of requiring prior auth. $75 per month [id number] if unable to obtain through endo provider. 4. hyponatremia sodium 131 on 08/15, will start NaCL fluids continuously and continue to monitor Chronic Conditions - held p.o. clindamycin that was originally started in the emergency department for wound. - no other chronic conditions requiring medication/surveillance. Diet: diabetic consistent carb GI Prophylaxis: DVT Prophylaxis: TEDs, Enoxaparin 40 Lines: pIV Code Status: Full Code Subjective Date/time seen: 08/15/23 10:04 Interval history: Patient is 53 YO male admitted yesterday from the ER for worsening infection to his 2nd right toe. He reports to have continued pain to the foot, swelling after being seen on Saturday, 08/10,? for same complaint and was offered admission but patient declined. Started on IV clindamycin, transitioned to p.o. clindamycin at that time. States that the wound initially started as a callus that he accidentally bumped, tearing the area, and then he pulled off the skin. Poor control of diabetes currently.? Patient reports that he has been unable to get a monitor and transmitter to accom
--- NOTE | 2023-08-15 10:08 | PM.PNGS ---
Progress Note: A&P Assessment and Plan (1) Diabetic infection of right foot: Code(s): E11.628 - Type 2 diabetes mellitus with other skin complications; L08.9 - Local infection of the skin and subcutaneous tissue, unspecified Status: Acute Assessment and Plan: Cellulitis of the right foot is marginally improved over yesterday. White blood cell count is decreasing. There is no worsening of the redness or swelling in the right forefoot. The right 2nd toe was still viable. It does not need any debridement at this time. Pain the right 2nd toe with Betadine twice a day. Wrap with dry Kerlix gauze. Will get him a postop shoe to ambulate. I did discuss with him the possibility that he could end up needing an extended course of IV antibiotics if he has evidence of osteomyelitis. No obvious evidence osteomyelitis on x-ray but MRI or bone scan would be more sensitive. (2) Abdominal pain: Code(s): R10.9 - Unspecified abdominal pain Status: Acute Assessment and Plan: No abdominal pain today. Lipase was mildly elevated. I think he can probably start some clear liquids today if he can tolerated. Subjective Subjective Date/Time Seen: 08/15/23 10:08 Interval history: Remains stable on the floor getting IV antibiotics for cellulitis of the right forefoot with ulceration and infection of the right 2nd toe. He is a poorly-controlled diabetic. He has had diabetic foot ulcers in the past which have healed. He states that the pain in the right foot is about the same as yesterday but no worse. White blood cell count is decreased to 15,000 from 20,000 yesterday. No fever tachycardia. Exam Const: General: comfortable and no acute distress Resp: Effort & Inspection: normal respiratory effort Auscultation: clear to auscultation bilaterally Cardio: Rate: regular rate Rhythm: regular rhythm GI: GI Palp: Yes Soft to palpation, No Firmness to palpation present (GI), No Tenderness to palpation present (GI), No Guarding due to palpation present (GI) and No Hernia present Extrem: Other: Right forefoot with mild erythema and mild swelling on the dorsal aspect. There is erythema and some swelling of the right 2nd toe with a 1cm ulcer on the medial portion of the toe. Minimal necrotic tissue was noted. Bone is not clearly exposed. He is able to move the toe and has feeling in the toe. Psych: Mental Status: mental status grossly normal Affect: normal affect Objective Data Vital Signs Vital Signs: Vital Signs - 24 hr 08/14/23 11:30 08/14/23 15:02 08/14/23 18:41 Temperature 36.7 C 37.2 C Pulse Rate 82 95 Respiratory Rate 16 16 Blood Pressure 126/68 120/69 Pulse Oximetry 97 97 Oxygen Delivery Room Air 08/14/23 20:00 08/15/23 00:00 08/14/23 20:00 Temperature 36.8 C 36.7 C Pulse Rate 93 85 85 Respiratory Rate 18 18 18 Blood Pressure 112/54 L 126/62 Pulse Oximetry 97 97 97 Oxygen Delivery Room Air 08/15/23 04:00 08/15/23 07:57 Temperature 36.7 C 36.8 C Pulse Rate 89 95 Respiratory Rate 18 17 Blood Pressure 113/57 L 122/75 Pulse Oximetry 97 96 Oxygen Delivery Intake/Output Intake/Output: Intake & Output 08/12/23 08/13/23 08/14/23 08/15/23 23:59 23:59 23:59 23:59 Intake Total 4454 52 Balance 4454 52 Meds/Results Medications: Active Medications Generic Name Dose Route Start Last Admin Trade Name Freq PRN Reason Stop Dose Admin Acetaminophen 650 mg 08/14/23 15:17 Acetaminophen 325 Mg Tablet PO Q4H PRN Mild Pain (1-3) or Fever Hydrocodone Bitart/Acetaminophen 1 tab 08/14/23 15:17 08/15/23 09:49 Hydrocodone/Acetaminophen (*Crx) 5-325 Mg Tablet PO 1 tab Q4H PRN Administration Moderate Pain (4-6) Dextrose 12.5 gm 08/14/23 15:13 Dextrose 50% 25 Gm/50 Ml Syringe IV PUSH PRN PRN Hypoglycemia Protocol Enoxaparin Sodium 40 mg 08/15/23 09:00 08/15/23 09:44 Enoxaparin 40 Mg/0.4 Ml Syringe SUB-Q No
[2023-08-15 10:14] LABS: Hepatitis B Surface Antigen Negative (Negative)
[2023-08-15 10:20] LABS: HAV RESULT Negative (Negative); Hepatitis B Core IgM Result Negative (Negative)
[2023-08-15 10:32] LABS: Hepatitis C Virus Antibody Negative (Negative)
[2023-08-15 11:57] LABS: Glucose Point of Care 157 mg/dl (65-105)
[2023-08-15] MEDS: INSULIN ASPART (*BKC) 100 UNITS/ML SUB-Q ×3 (12:53→21:42)
[2023-08-15] MEDS: SODIUM CHLORIDE 0.9% IV 1,000 ML 100 ML IV CONT ×2 (12:55→21:41)
[2023-08-15] MEDS: cefTRIAXone 2 GM/NS 100 ML 2 GM/100 ML BAG IVPB (12:57)
[2023-08-15 15:47] LABS: Vancomycin Random 9.3 ug/mL (10-20)
[2023-08-15 17:30] LABS: Glucose Point of Care 136 mg/dl (65-105)
[2023-08-15 20:48] LABS: Glucose Point of Care 279 mg/dl (65-105)
[2023-08-15] MEDS: INSULIN GLARGINE (*BKC) 100 UNITS/ML 14 UNITS SUB-Q (21:43)
[2023-08-16] VITALS: BP 117/52; PULSE 83; RESP 18; TEMP 36.8; O2SAT 97
[2023-08-16 04:00] VITALS: BP 107/57; PULSE 79; RESP 18; TEMP 36.5; O2SAT 98
[2023-08-16] MEDS: SODIUM CHLORIDE 0.9% IV 1,000 ML 100 ML IV CONT (05:49)
[2023-08-16] MEDS: metroNIDAZOLE 500 MG/ISO 100ML 500 MG/100 ML BAG 100 MG IVPB (05:49)
[2023-08-16 07:57] LABS: Basophils Percent Auto 0.2 % (0.2-1.2); Eosinophils Absolute Auto 0.2 K/mm3 (0-0.3); Eosinophils Percent Auto 1.3 % (0-4.4); Hematocrit 36.2 % (42.0-52.0); Hemoglobin 11.8 g/dL (14.0-18.0); Immature Granulocyte Absolute 0.06 K/mm3 (0.00-0.031); Immature Granulocyte Percent A 0.5 % (0-0.5); Lymphocytes Absolute Auto 1.43 K/mm3 (0.9-3.2); Lymphocytes Percent Auto 11.8 % (18.3-44.2); Mean Corpuscular HGB Conc 32.6 g/dl (32-36); Mean Corpuscular Hemoglobin 29.3 pg (26-34); Mean Corpuscular Volume 89.8 fl (80-100); Monocytes Percent Auto 7.9 % (2.6-8.5); Neutrophils Absolute Auto 9.5 K/mm3 (1.3-6.7); Neutrophils Percent Auto 78.3 % (45.5-73.1); Platelet Count Result 594 k/mm3 (150-375); Red Blood Count 4.03 M/mm3 (4.6-6.20); Red Cell Distribution Width 12.9 % (11.5-14.5); White Blood Count 12.2 K/mm3 (4.5-10.0)
[2023-08-16 08:11] VITALS: BP 119/68; PULSE 82; RESP 17; TEMP 36.7; O2SAT 98
[2023-08-16 08:15] LABS: Anion Gap 2 mmol/L (8-16); Blood Urea Nitrogen 7 mg/dL (9-20); Carbon Dioxide 30 mmol/L (22-30); Chloride 101 mmol/L (98-107); Estimated CRCL calculation 125 ml/min; Estimated Glomerular Filt Rate > 60; Glucose 187 mg/dL (65-110); Potassium 3.3 mmol/L (3.4-5.0); Sodium 133 mmol/L (137-145)
[2023-08-16 08:22] LABS: Glucose Point of Care 174 mg/dl (65-105)
--- NOTE | 2023-08-16 08:29 | PM.PNGS ---
Progress Note: A&P Assessment and Plan (1) Diabetic infection of right foot: Code(s): E11.628 - Type 2 diabetes mellitus with other skin complications; L08.9 - Local infection of the skin and subcutaneous tissue, unspecified Status: Acute Assessment and Plan: Right foot cellulitis markedly improved. Continue current IV antibiotic therapy. White blood cell count is down to 12,000. The ulcer on the right 2nd toe is improving with application of Betadine to the toe twice a day. Continue Betadine to the toe and wrapping with dry gauze. If he continues to improve then he can likely home on oral antibiotics in next 24 to 48 hours. (2) Type 1 diabetes mellitus on insulin therapy: Code(s): E10.9 - Type 1 diabetes mellitus without complications Status: Chronic Assessment and Plan: Glucose levels have been in the 170s to low 200s. Patient does have a glucometer at home and I commended that he prep he was blood sugars closer 150 if possible. He will need to get a primary care physician in the area to help him manage his diabetes. Subjective Subjective Date/Time Seen: 08/16/23 08:29 Interval history: Patient's right foot pain is much improved. Able to ambulate with a postop shoe. Tolerated clear liquids for diet yesterday. White blood cell count is down to 12,000 today. No fever. Continues on IV antibiotics for his right foot cellulitis. Exam GI: GI Palp: Yes Soft to palpation, No Firmness to palpation present (GI), No Tenderness to palpation present (GI), No Guarding due to palpation present (GI) and No Hernia present Extrem: Other: Right foot 2nd toe ulcer is clean. Minimal necrotic tissue. Drainage is minimal serous. No purulent drainage. The redness in the toe is much improved and he has much less tenderness to palpation. Redness across the dorsal forefoot of the right foot has resolved. Objective Data Vital Signs Vital Signs: Vital Signs - 24 hr 08/15/23 10:07 08/15/23 11:45 08/15/23 17:11 Temperature 37.2 C 37.8 C H Pulse Rate 89 93 Respiratory Rate 16 16 Blood Pressure 112/66 111/59 L Pulse Oximetry 96 97 96 Oxygen Delivery Room Air 08/15/23 20:00 08/16/23 00:00 08/15/23 22:29 Temperature 36.9 C 36.8 C Pulse Rate 89 83 Respiratory Rate 18 18 Blood Pressure 101/53 L 117/52 L Pulse Oximetry 97 97 97 Oxygen Delivery Room Air 08/16/23 04:00 08/16/23 08:11 Temperature 36.5 C 36.7 C Pulse Rate 79 82 Respiratory Rate 18 17 Blood Pressure 107/57 L 119/68 Pulse Oximetry 98 98 Oxygen Delivery Intake/Output Intake/Output: Intake & Output 08/13/23 08/14/23 08/15/23 08/16/23 23:59 23:59 23:59 23:59 Intake Total 4454 2432 1500 Balance 4454 2432 1500 Meds/Results Medications: Active Medications Generic Name Dose Route Start Last Admin Trade Name Freq PRN Reason Stop Dose Admin Acetaminophen 650 mg 08/14/23 15:17 Acetaminophen 325 Mg Tablet PO Q4H PRN Mild Pain (1-3) or Fever Hydrocodone Bitart/Acetaminophen 1 tab 08/14/23 15:17 08/15/23 17:45 Hydrocodone/Acetaminophen (*Crx) 5-325 Mg Tablet PO 1 tab Q4H PRN Administration Moderate Pain (4-6) Dextrose 12.5 gm 08/14/23 15:13 Dextrose 50% 25 Gm/50 Ml Syringe IV PUSH PRN PRN Hypoglycemia Protocol Enoxaparin Sodium 40 mg 08/15/23 09:00 08/15/23 09:44 Enoxaparin 40 Mg/0.4 Ml Syringe SUB-Q Not Given DAILY VITA Glucagon 1 mg 08/14/23 15:13 Glucagon For Inj 1 Mg Vial IM PRN PRN Hypoglycemia Protocol Glucose 15 gm 08/14/23 15:13 Glucose Oral Gel 15 Gm Of Glucse In 37.5 Gm Tube PO PRN PRN Hypoglycemia Protocol Metronidazole 500 mg in 100 mls @ 100 mls/hr 08/14/23 15:30 08/16/23 05:49 Flagyl 500 Mg/Iso Soln 100 Ml IVPB 100 mls/hr Q8HR VITA Administration Dextrose 1,000 mls @ 100 mls/hr 08/14/23 15:13 Dextrose 5% 1,000 Ml IVPB PRN PRN Hypoglycemia Shamika
[2023-08-16] MEDS: POTASSIUM CHLORIDE 20 MEQ ER TABLET 40 MEQ PO (09:43)
[2023-08-16] MEDS: AMOXICILLIN/CLAVULANATE K 875-125 MG TAB 1 TABLET PO (09:43)
[2023-08-16] MEDS: INSULIN ASPART (*BKC) 100 UNITS/ML SUB-Q ×3 (09:44→12:19)
--- NOTE | 2023-08-16 10:55 | P.PNIM_ITS ---
Progress Note: A&P Assessment and Plan (1) Diabetic infection of right foot: Code(s): E11.628 - Type 2 diabetes mellitus with other skin complications; L08.9 - Local infection of the skin and subcutaneous tissue, unspecified Status: Acute (2) Type 1 diabetes mellitus on insulin therapy: Code(s): E10.9 - Type 1 diabetes mellitus without complications Status: Chronic (3) Sepsis: Code(s): A41.9 - Sepsis, unspecified organism Status: Acute (4) Hyponatremia: Code(s): E87.1 - Hypo-osmolality and hyponatremia Status: Acute Plan Problem List 1. diabetic infection of right foot * general surgery consulted - Cunha following * noting improvement in margins, may benefit from MRI or bone scan to rule out osteomylitis local wound care d/c clindamycin and flagyl, continue IV Vnacomycin until blood cultures have both resulted. gbs resulted in aerobic blood culture, could be contam inate but due to risk of staph infection in blood stream, will continue on vanc transition to PO augmentin and con't to monitor WBC -plan to d/c home on oral AB tomorrow morning if continues to improve * Lower extremity CT No CT evidence for osteomyelitis. MRI and/or 3 phase bone scan could be considered for more sensitive evaluation for early osteomyelitis. Soft tissue ulceration and/or soft tissue gas in the plantar aspect of the second toe at the level of the middle phalanx. No drainable abscess evident. * elevated WBC, 19.8 and elevated platelet count, 716 * elevated CRP 3.0 * monitor labs * blood cultures (08/13) pending * wound culture - initial growth, pending formal result Few white blood cells seen Moderate gram negative bacilli Few gram positive cocci in chains 2. abdominal pain * US liver ordered 08/15 and hepatitis labs due to elevated liver enzymes - all normal * ?Abd/pelvis CT Calcification in the pancreas, consistent with chronic pancreatitis. No specific evidence of acute pancreatitis. * CXR: normal chest * EKG SINUS TACHYCARDIA RIGHT BUNDLE-BRANCH BLOCK NONSPECIFIC ST ABNORMALITY ABNORMAL ECG NO PREVIOUS ECG AVAILABLE FOR COMPARISON * lipase: 519 * AST/ALT elevated 119/164; AKP 146 * protein albumin low, likely chronically protein deficient * UA: specific gravity 1.07 to, 3+ glucose, trace ketones * PRN pain meds - tyl, norco, morphine * zofran PRN 3. type 1 diabetes, on insulin therapy * diet advanced to cc 08/16 am, discussed need for blood sugar control, may need to adjust insulin if does not stay below 150 * lantus dose increased to 18 units, novolog sliding scale adjusted to high dosing as his blood sugars have been >300 since eating * hypoglycemia protocol * POC blood glucose ACHS * A1C 10.9 on 08/10/23 * discussed monitor and transmitter with patient, patient has tandem pump. Patient may qualify for freestyle Abel 3. Discussed with patient in the morning. Per hematology nurse educator may be beneficial to have patient reach out to his record center specialist to obtain this prescription due to probability of requiring prior auth. $75 per month [id number] if unable to obtain through endo provider. 4. hyponatremia * sodium improved on fluids * potassium 3.3 on 08/16, given 40 KCL PO and will recheck Chronic Conditions - held p.o. clindamycin that was originally started in the emergency department for wound. - no other chronic conditions requiring medication/surveillance. Diet: diabetic consistent carb GI Prophylaxis:
--- NOTE | 2023-08-16 10:55 | PM.IMPN ---
Progress Note: A&P Assessment and Plan (1) Diabetic infection of right foot: Code(s): E11.628 - Type 2 diabetes mellitus with other skin complications; L08.9 - Local infection of the skin and subcutaneous tissue, unspecified Status: Acute (2) Type 1 diabetes mellitus on insulin therapy: Code(s): E10.9 - Type 1 diabetes mellitus without complications Status: Chronic (3) Sepsis: Code(s): A41.9 - Sepsis, unspecified organism Status: Acute (4) Hyponatremia: Code(s): E87.1 - Hypo-osmolality and hyponatremia Status: Acute Plan Problem List 1. diabetic infection of right foot general surgery consulted - Cunha following noting improvement in margins, may benefit from MRI or bone scan to rule out osteomylitis local wound care d/c clindamycin and flagyl, continue IV Vnacomycin until blood cultures have both resulted. gbs resulted in aerobic blood culture, could be contaminate but due to risk of staph infection in blood stream, will continue on vanc transition to PO augmentin and con't to monitor WBC -plan to d/c home on oral AB tomorrow morning if continues to improve Lower extremity CT No CT evidence for osteomyelitis. MRI and/or 3 phase bone scan could be considered for more sensitive evaluation for early osteomyelitis. Soft tissue ulceration and/or soft tissue gas in the plantar aspect of the second toe at the level of the middle phalanx. No drainable abscess evident. elevated WBC, 19.8 and elevated platelet count, 716 elevated CRP 3.0 monitor labs blood cultures (08/13) pending wound culture - initial growth, pending formal result Few white blood cells seen Moderate gram negative bacilli Few gram positive cocci in chains 2. abdominal pain US liver ordered 08/15 and hepatitis labs due to elevated liver enzymes - all normal ?Abd/pelvis CT Calcification in the pancreas, consistent with chronic pancreatitis. No specific evidence of acute pancreatitis. CXR: normal chest EKG SINUS TACHYCARDIA RIGHT BUNDLE-BRANCH BLOCK NONSPECIFIC ST ABNORMALITY ABNORMAL ECG NO PREVIOUS ECG AVAILABLE FOR COMPARISON lipase: 519 AST/ALT elevated 119/164; AKP 146 protein albumin low, likely chronically protein deficient UA: specific gravity 1.07 to, 3+ glucose, trace ketones PRN pain meds - tyl, norco, morphine zofran PRN 3. type 1 diabetes, on insulin therapy diet advanced to cc 10 am, discussed need for blood sugar control, may need to adjust insulin if does not stay below 150 lantus dose increased to 18 units, novolog sliding scale adjusted to high dosing as his blood sugars have been >300 since eating hypoglycemia protocol POC blood glucose ACHS A1C 10.9 on 08/10/23 discussed monitor and transmitter with patient, patient has tandem pump. Patient may qualify for freestyle Abel 3. Discussed with patient in the morning. Per health educator may be beneficial to have patient reach out to his transportation mechanic to obtain this prescription due to probability of requiring prior auth. $75 per month [id number] if unable to obtain through endo provider. 4. hyponatremia sodium improved on fluids potassium 3.3 on 08/16, given 40 KCL PO and will recheck Chronic Conditions - held p.o. clindamycin that was originally started in the emergency department for wound. - no other chronic conditions requiring medication/surveillance. Diet: diabetic consistent carb GI Prophylaxis: DVT Prophylaxis: TEDs, Enoxaparin 40 Lines: pIV Code Status: Full Code Subjective Date/time seen: 08/16/23 10:55 Interval history: Patient is 53 YO male admitted 08/14 from the ER for worsening infection to his 2nd right toe. He reports to have continued pain to the foot, swelling after being seen on Saturday, 08/10,? for same complaint and was offered admission but patient declined. Started on IV clindamycin, transitioned to p.o. clindamycin at that ti
[2023-08-16 11:45] VITALS: BP 118/67; PULSE 89; RESP 16; TEMP 37.2; O2SAT 97
[2023-08-16 11:55] LABS: Glucose Point of Care 360 mg/dl (65-105)
[2023-08-16 12:26] LABS: Glucose Point of Care 364 mg/dl (65-105)
[2023-08-16 13:33] LABS: Glucose Point of Care 352 mg/dl (65-105)
[2023-08-16] MEDS: HYDROcodone/acetaminophen (*CRX) 5-325 MG TABLET 1 TAB PO (13:46)
[2023-08-16 14:24] LABS: Potassium 4.3 mmol/L (3.4-5.0)
[2023-08-16 15:45] VITALS: BMI 20.2
--- NOTE | 2023-08-16 16:30 | PC.NURSE ---
Patient refusing RN to remove insulin from bedside.
--- NOTE | 2023-08-16 16:31 | P.DS_ITS ---
DS: Admitting Diagnosis Discharge Date 08/16/23 Admitting Diagnosis diabetic infection, right second toe DS: Discharge Diagnosis Discharge Diagnosis (1) Diabetic infection of right foot: Code(s): E11.628 - Type 2 diabetes mellitus with other skin complications; L08.9 - Local infection of the skin and subcutaneous tissue, unspecified Status: Acute (2) Type 1 diabetes mellitus on insulin therapy: Code(s): E10.9 - Type 1 diabetes mellitus without complications Status: Chronic (3) Sepsis: Code(s): A41.9 - Sepsis, unspecified organism Status: Acute (4) Hyponatremia: Code(s): E87.1 - Hypo-osmolality and hyponatremia Status: Acute Plan Problem List 1. diabetic infection of right foot * general surgery consulted - Cunha following * noting improvement in margins, may benefit from MRI or bone scan to rule out osteomylitis local wound care d/c clindamycin and flagyl, continue IV Vnacomycin until blood cultures have both resulted. gbs resulted in aerobic blood culture, could be contaminate but due to risk of staph infection in blood stream, will continue on vanc transition to PO augmentin and con't to monitor WBC -plan to d/c home on oral AB tomorrow morning if continues to improve * Lower extremity CT No CT evidence for osteomyelitis. MRI and/or 3 phase bone scan could be considered for more sensitive evaluation for early osteomyelitis. Soft tissue ulceration and/or soft tissue gas in the plantar aspect of the second toe at the level of the middle phalanx. No drainable abscess evident. * elevated WBC, 19.8 and elevated platelet count, 716 * elevated CRP 3.0 * monitor labs * blood cultures (08/13) pending * wound culture - initial growth, pending formal result Few white blood cells seen Moderate gram negative bacilli Few gram positive cocci in chains 2. abdominal pain * US liver ordered 08/15 and hepatitis labs due to elevated liver enzymes - all normal * ?Abd/pelvis CT Calcification in the pancreas, consistent with chronic pancreatitis. No specific evidence of acute pancreatitis. * CXR: normal chest * EKG SINUS TACHYCARDIA RIGHT BUNDLE-BRANCH BLOCK NONSPECIFIC ST ABNORMALITY ABNORMAL ECG NO PREVIOUS ECG AVAILABLE FOR COMPARISON * lipase: 519 * AST/ALT elevated 119/164; AKP 146 * protein albumin low, likely chronically protein deficient * UA: specific gravity 1.07 to, 3+ glucose, trace ketones * PRN pain meds - tyl, norco, morphine * zofran PRN 3. type 1 diabetes, on insulin therapy * diet advanced to cc 08/16 am, discussed need for blood sugar control, may need to adjust insulin if does not stay below 150 * lantus dose increased to 18 units, novolog sliding scale adjusted to high dosing as his blood sugars have been >300 since eating * hypoglycemia protocol * POC blood glucose ACHS * A1C 10.9 on 08/10/23 * discussed monitor and transmitter with patient, patient has tandem pump. Patient may qualify for freestyle Aebl 3. Discussed with patient in the morning. Per consumer educator may be beneficial to have patient reach out to his diesel powerplant supervisor to obtain this prescription due to probability of requiring prior auth. $75 per month [id number] if unable to obtain through endo provider. 4. hyponatremia * sodium improved on fluids * potassium 3.3 on 08/16, given 40 KCL PO and will recheck Chronic Conditions - held p.o. clindamycin that was originally started in the emergency department for
--- NOTE | 2023-08-16 16:31 | PM.DS ---
DS: Admitting Diagnosis Discharge Date 08/16/23 Admitting Diagnosis diabetic infection, right second toe DS: Discharge Diagnosis Discharge Diagnosis (1) Diabetic infection of right foot: Code(s): E11.628 - Type 2 diabetes mellitus with other skin complications; L08.9 - Local infection of the skin and subcutaneous tissue, unspecified Status: Acute (2) Type 1 diabetes mellitus on insulin therapy: Code(s): E10.9 - Type 1 diabetes mellitus without complications Status: Chronic (3) Sepsis: Code(s): A41.9 - Sepsis, unspecified organism Status: Acute (4) Hyponatremia: Code(s): E87.1 - Hypo-osmolality and hyponatremia Status: Acute Plan Problem List 1. diabetic infection of right foot general surgery consulted - Cunha following noting improvement in margins, may benefit from MRI or bone scan to rule out osteomylitis local wound care d/c clindamycin and flagyl, continue IV Vnacomycin until blood cultures have both resulted. gbs resulted in aerobic blood culture, could be contaminate but due to risk of staph infection in blood stream, will continue on vanc transition to PO augmentin and con't to monitor WBC -plan to d/c home on oral AB tomorrow morning if continues to improve Lower extremity CT No CT evidence for osteomyelitis. MRI and/or 3 phase bone scan could be considered for more sensitive evaluation for early osteomyelitis. Soft tissue ulceration and/or soft tissue gas in the plantar aspect of the second toe at the level of the middle phalanx. No drainable abscess evident. elevated WBC, 19.8 and elevated platelet count, 716 elevated CRP 3.0 monitor labs blood cultures (08/13) pending wound culture - initial growth, pending formal result Few white blood cells seen Moderate gram negative bacilli Few gram positive cocci in chains 2. abdominal pain US liver ordered 08/15 and hepatitis labs due to elevated liver enzymes - all normal ?Abd/pelvis CT Calcification in the pancreas, consistent with chronic pancreatitis. No specific evidence of acute pancreatitis. CXR: normal chest EKG SINUS TACHYCARDIA RIGHT BUNDLE-BRANCH BLOCK NONSPECIFIC ST ABNORMALITY ABNORMAL ECG NO PREVIOUS ECG AVAILABLE FOR COMPARISON lipase: 519 AST/ALT elevated 119/164; AKP 146 protein albumin low, likely chronically protein deficient UA: specific gravity 1.07 to, 3+ glucose, trace ketones PRN pain meds - tyl, norco, morphine zofran PRN 3. type 1 diabetes, on insulin therapy diet advanced to cc 10 am, discussed need for blood sugar control, may need to adjust insulin if does not stay below 150 lantus dose increased to 18 units, novolog sliding scale adjusted to high dosing as his blood sugars have been >300 since eating hypoglycemia protocol POC blood glucose ACHS A1C 10.9 on 08/10/23 discussed monitor and transmitter with patient, patient has tandem pump. Patient may qualify for freestyle Abel 3. Discussed with patient in the morning. Per environmental educator may be beneficial to have patient reach out to his sandblaster glass to obtain this prescription due to probability of requiring prior auth. $75 per month [id number] if unable to obtain through endo provider. 4. hyponatremia sodium improved on fluids potassium 3.3 on 08/16, given 40 KCL PO and will recheck Chronic Conditions - held p.o. clindamycin that was originally started in the emergency department for wound. - no other chronic conditions requiring medication/surveillance. Diet: diabetic consistent carb GI Prophylaxis: DVT Prophylaxis: TEDs, Enoxaparin 40 Lines: pIV Code Status: Full Code DS: Summary Hospital Course Hospital Course: See hospital progress note dated 08/16/23. 89 YO male admitted for diabetic wound worsening post oral clindamycin. Resolved with IV Vancomycin, flagyl and azithromycin.Plan was for patient to stay until blood cultures had resu
[2023-08-16 16:40] VITALS: BP 103/61; PULSE 85; RESP 17; TEMP 36.9; O2SAT 98
[2023-08-16 16:46] LABS: Glucose Point of Care 292 mg/dl (65-105)
== END 2023-08-16 17:30 | disposition home or self-care (01) | DRG 638 ==
LOC: ANHED 08-14 08:53 → ANH2MED 08-14 09:24
PROVIDERS: Student in an Organized Health Care Education/Training Program; Admitting Provider Chiropractor; Emergency Provider Physician Assistant; Visit Provider Nurse Practitioner
DX: E10.628 Type 1 diabetes mellitus with other skin complications (principal); E87.1 Hypo-osmolality and hyponatremia; L97.516 Non-pressure chronic ulcer of other part of right foot with bone involvement without evidence of necrosis; K86.1 Other chronic pancreatitis; L03.115 Cellulitis of right lower limb; L03.031 Cellulitis of right toe; E10.621 Type 1 diabetes mellitus with foot ulcer; E10.65 Type 1 diabetes mellitus with hyperglycemia; E10.40 Type 1 diabetes mellitus with diabetic neuropathy, unspecified; F17.210 Nicotine dependence, cigarettes, uncomplicated; Z96.41 Presence of insulin pump (external) (internal); Z79.4 Long term (current) use of insulin
CPT/HCPCS: 36415; 71046; 73701; 74176; 76705; 80048; 80053; 80074; 80202; 81003; 82948; 83605; 83690; 84132; 85025; 85610; 85730; 86140; 87040; 87070; 87147; 87181; 87186; 87205; 93005; 96361; 96365; 96366; 96367; 96375; 96376; 99285; A9270; J0692; J0696; J1815; J1836; J2270; J2405; J3370; J7030; Q9967

== ENCOUNTER 2023-10-08 09:20 | Outpatient (CLI) | payer OTHER, SELFPAY ==
--- NOTE | ~2023-10-08 | US_ITS ---
US arterial ankle brachial ind INDICATION: Peripheral vascular disease. Diabetes. TECHNIQUE: Segmental pressures and plethysmographic and Doppler waveforms of the brachial and lower e xtremity arteries were obtained. COMPARISON: None. FINDINGS: Right and left brachial artery pressures of 123 mm Hg and 127 mm Hg, respectively, are concordant (no rmal difference <= 30 mmHg). The right ankle-brachial index (ALVARADO) is 1.27 (normal >= 0.9-1.0). The right great toe-brachial index (TBI) is 0.69 (normal >= 0.60). The left ALVARADO is 1.3. The left TBI is 0.85. IMPRESSION: 1. Normal bilateral ankle-brachial indices. Reviewed, dictated and finalized at location A. LTY DEAN
== END 2023-10-08 09:21 | disposition home or self-care (01) ==
LOC: CHSIMG 09:22
PROVIDERS: Visit Provider Surgery
DX: E10.9 Type 1 diabetes mellitus without complications (principal); I73.9 Peripheral vascular disease, unspecified
CPT/HCPCS: 93922

== ENCOUNTER 2023-10-25 13:19 | Outpatient (CLI) | payer OTHER, SELFPAY ==
[2023-10-25 14:13] LABS: INR 0.9; Partial Thromboplastin Time 26.8 SECONDS (22.3-36.8); Prothrombin Time 12.8 Seconds (11.1-14.7)
[2023-10-25 14:45] LABS: Anion Gap 10 mmol/L (8-16); Blood Urea Nitrogen 23 mg/dL (9-20); Calcium 9.4 mg/dL (8.4-10.2); Carbon Dioxide 27 mmol/L (22-30); Chloride 92 mmol/L (98-107); Estimated Glomerular Filt Rate > 60; Potassium 5.4 mmol/L (3.4-5.0); Sodium 129 mmol/L (137-145)
[2023-10-25 14:47] LABS: Glucose 609 mg/dL (65-110)
== END 2023-10-25 13:20 | disposition home or self-care (01) ==
LOC: ANHSURGERY 13:22
PROVIDERS: Anesthesiology; Visit Provider Surgery
DX: Z01.818 Encounter for other preprocedural examination (principal); K86.1 Other chronic pancreatitis; E10.9 Type 1 diabetes mellitus without complications
CPT/HCPCS: 36415; 80048; 85610; 85730

== ENCOUNTER 2023-11-01 01:10 | Day surgery (SDC) | payer OTHER, SELFPAY ==
[2023-10-22 08:44] VITALS: BMI 19.2
--- NOTE | 2023-10-22 08:49 | PC.NURSE ---
Report to the Outpatient Waiting Room, entrance under the green pavilion located off [facility], at time 6:00 on date 11/01/23. Planned Procedure Time: 7:30. Time changes happen often and if your time is changed the preop area will call you the afternoon before. - You and your visitor will be asked to self-screen and do not enter if you have any COVID symptoms. - A mask is optional within the hospital at this time. Patients may have clear liquids (water, carbonated beverages, clear teas, apple juice) until 3 hours prior to surgery (4:30) with a maximum of 20 ounces. - No food from midnight until time of surgery Take the following medications with a SIP of water the morning of surgery: ANTIBIOTIC DO NOT STOP ANY OF YOUR OTHER PRESCRIPTION MEDICATIONS PRIOR TO SURGERY ?EXCEPT THE FOLLOWING Medications to discontinue per physician: N/A Date to take last dose: N/A Please no make-up, nail turkmen, hairspray, perfume, deodorant, or body powder the day of surgery. No jewelry (including any body piercings) or valuables the day of surgery, leave them at home. Please take a shower or bath the night before, or the morning of, surgery with an antibacterial soap. Wear comfortable, loose fitting clothing. - Jewelry must be removed prior to entering the operating room. Rings and piercings that are not removed may be cut off. - The hospital will not accept responsibility for valuables. - Please leave all valuables, including medications, at home the day of surgery. If you are going home after surgery, a licensed tanker truck driver must drive you home. - NO public transportation without another adult if you receive anesthesia. - We recommend that an adult stay with you for 24 hours following discharge. - We also recommend that you do not drive, make important decision, drink alcoholic beverages, or take any drugs that were not prescribed by your health care provider for at least 24 hours after your discharge time. Follow any additional instructions given to you from your surgeon. If you or anyone in your household have experienced Covid symptoms in the past week, please notify your surgeon or the nurse liaison at the phone number below for possible testing. Telephone instructions given to PT - KRUPA BARDALES and asked if any additional questions and then verbalized understanding. Patient advised to call surgeon office or pre surgery nurse liaison [phone] if any additional questions.
--- NOTE | 2023-10-31 14:34 | WPDANESEPPF ---
Anes - Initial Pre Proc Eval Procedure: Operation Date: 11/01/23 07:30 Proposed Procedures p Right Second Toe Amputation - Daniel Cunha MD Date/Time: 10/31/23 14:34 Surgeon: Daniel Cunha MD Pre Op Diagnosis: osteomyelitis, chronic nonhealing diab foot wound Patient Data Age: 53 Gender: M Height: 1.88 m Weight: 68.05 kg Allergies Allergy/AdvReac Type Severity Reaction Status Date / Time No Known Allergies Allergy Verified 11/01/23 06:11 Home Medications Medication Instructions Recorded Confirmed Type insulin aspart U-100 100 unit/mL See Rx Instructions .Route .COMPLEX 08/13/23 10/22/23 History subcutaneous solution insulin glargine 100 unit/mL 30 unit subcut DAILY 08/13/23 10/22/23 History subcutaneous solution (Lantus U-100 Insulin) amoxicillin 875 mg-potassium 1 tablet PO BID #28 tabs 10/15/23 10/22/23 Rx clavulanate 125 mg tablet Patient hx anesthesia problems: none Family hx anesthesia problems: none Results Review: All pre-operative results and documents have been reviewed as part of the pre-operative evaluation. [facility] Past Medical History Medical History Abdominal pain Pancreatitis Type 1 diabetes mellitus on insulin therapy Surgical History Surgical History History of laparoscopic cholecystectomy Social History Social History Social History: Currently lives with his girlfriend and her children. Surrogate decision maker: Vicenta Wilks, girlfriend. Code Status: Full Code. Smoking packs per day: 0.75 Smoking cigarettes per day: 15.0 Years smoked: 40 Smoking pack-years: 30.00 Smoking status: Current every day smoker Tobacco type: cigarettes Alcohol intake: current Alcohol use details: VERY RARE Substance use: current Substance use type: marijuana Other substance usage details: CRIS CHAVES Lack of Transportation: YES Lack of Food: Never True Current Housing: I Have Housing Concerned About Future Housing: No Difficulty Paying Gas/Electric Bills: No Difficulty Paying for Meds: No Currently Unemployed: No Education: Associate Degree Difficulty w/ Childcare or Family Care: No Living arrangements: with friend(s) Spiritual care concerns: No Anes - Eval Final PreProcedure Day of Procedure 10/31/23 14:34 Patient weight: normal Heart: regular rate and rhythm Lungs: clear to auscultation Airway: Mallampati scale class III (poor dentition; all chipped teeth uppers) Neurological: alert and oriented Last oral intake: >/= 8 hours ASA classification: III Emergent: no Anesthetic plan: proceed Anesthesia type and monitoring: general LMA and standard monitoring Results Review: All pre-operative results and documents have been reviewed as part of the pre-operative evaluation. Informed Consent: The patient's anesthetic plan and its attendant risks and benefits were discussed with the patient/family/POA. Questions were solicited and answers provided to the satisfaction of the patient/family/POA.
[2023-11-01] VITALS (9 sets, daily range): BP systolic 98–124; BP diastolic 58–85; PULSE 71–79; RESP 12–20; TEMP 36.2–36.8; O2SAT 96–100
[2023-11-01 06:19] LABS: Glucose Point of Care 80 mg/dl (65-105)
[2023-11-01] MEDS: LACTATED RINGERS 1,000 ML 30 ML IV CONT (06:20)
[2023-11-01 06:42] LABS: Anion Gap 2 mmol/L (8-16); Blood Urea Nitrogen 22 mg/dL (9-20); Carbon Dioxide 32 mmol/L (22-30); Chloride 103 mmol/L (98-107); Estimated CRCL calculation 96 ml/min; Estimated Glomerular Filt Rate > 60; Glucose 73 mg/dL (65-110); Sodium 137 mmol/L (137-145)
[2023-11-01 06:44] LABS: Glucose Point of Care 67 mg/dl (65-105)
[2023-11-01] MEDS: DEXTROSE 50% 25 GM/50 ML SYRINGE IV PUSH (06:47)
--- NOTE | 2023-11-01 06:48 | SUR.PREOP ---
Symptomatic hypoglycemia, spoke with Dr Anoop Butcher, orders received.
--- NOTE | 2023-11-01 07:20 | WPDHPUPDATE1 ---
History and Physical Update Update Date/Time: 11/01/23 07:20 History and Physical has been reviewed, including an updated exam of the patient. There are NO changes in the patient's condition. Risks, benefits, and alternatives have been discussed and questions answered. Patient agrees to proceed with procedure.
[2023-11-01 07:21] LABS: Glucose Point of Care 109 mg/dl (65-105)
[2023-11-01] MEDS: ceFAZolin 2 GM/D5W 50 ML 2 GM/50 ML BAG IVPB (07:28)
[2023-11-01] MEDS: LIDO 1%/EPINEPHRINE 1:100,000 50 ML VIAL 20 ML INFILTRATE (08:00)
[2023-11-01] MEDS: BACITRACIN/POLYMYXIN B OINT 15 GM TUBE 1 APPLIC TOPICAL (08:17)
[2023-11-01 08:31] LABS: Glucose Point of Care 101 mg/dl (65-105)
--- NOTE | 2023-11-01 08:34 | W.PM.PROC2 ---
Procedure Note - Detailed Date of Procedure 11/01/23 Pre-op Diagnosis Osteomyelitis right 2nd toe, chronic nonhealing diab foot wound Post-op Diagnosis Same Procedure Performed Amputation right 2nd toe. Surgeon Daniel Cunha MD Cordage Sales Representative Barbi Bosch [employer] Anesthesia MAC Indications Patient is a 53-year-old gentleman who is an insulin-dependent diabetic who had been hospitalized for infection and cellulitis of the right 2nd toe. He developed ulcer in the medial aspect of the right 2nd toe which appears to have likely infected the PIP joint. He has had nonhealing wounds that area. He presents now for amputation of the right 2nd toe. Findings Margins of the amputation of the right 2nd toe at the metatarsophalangeal joint appeared to be viable. There is no cellulitic change in that area or swelling. Description of Procedure After informed consent was obtained patient brought to the operating room was placed supine position and then IV sedation was administered by anesthesia. The right lower extremity was prepped and draped usual sterile fashion from the foot up to just above the ankle. A time-out was then performed correctly identifying the patient as well as procedure performed verifying the site marking. He was given Ancef for perioperative IV antibiotics. I then injected 1% lidocaine mixed with 0.5% Marcaine with some epinephrine around the base of the right 2nd toe. A circumferential incision was made with a 15 blade scalpel creating a small plantar subcutaneous flap. Dissection carried sharply with a scalpel all the way down to the bone proximal to the nonhealing. I used a small bone cutter to transect the phalanx flush with the skin. The toe was sent to pathology for examination. The proximal bone margin appeared to be normal-appearing without any necrosis. I then used a rongeur to resect a bit more the proximal phalanx so that I could close the subcutaneous flap. There is then irrigated sterile saline solution. The wound was then closed utilizing interrupted 3-0 Vicryl sutures to approximate subcutaneous tissues over the residual proximal phalanx. This is then followed by interrupted 3-0 nylon sutures placed in a vertical mattress fashion to close the skin edges. The area then cleaned and then antibiotic ointment was applied to the suture line. Fluffed 4x4 gauze, Kerlix gauze, and a 4in Beny wrap was used to wrap the foot for final dressing. The patient tolerated the procedure well no complications. All sponges, needles, and instrument counts were correct at the end procedure. EBL was _2__cc. The patient was awakened and taken to recovery in stable and satisfactory condition. Implants None Estimated Blood Loss 2 Drains No Packing No Pathology Yes (Right 2nd toe sent to pathology) Complications No immediate complications Condition Stable Disposition PACU [facility] Billing Surgery - Charge Forward: Surgery Billing
[2023-11-01] MEDS: oxyCODONE (*CRX) 5 MG/5 ML ORAL SOLN IR 2.5 MG PO (09:16)
== END 2023-11-01 10:08 | disposition home or self-care (01) ==
PROVIDERS: Anesthesiology; Visit Provider Surgery
PROC: (CPT 28810; principal; 2023-11-01 07:30)
DX: M86.9 Osteomyelitis, unspecified (principal); L08.9 Local infection of the skin and subcutaneous tissue, unspecified; E11.628 Type 2 diabetes mellitus with other skin complications; E11.621 Type 2 diabetes mellitus with foot ulcer; L97.519 Non-pressure chronic ulcer of other part of right foot with unspecified severity; Z79.4 Long term (current) use of insulin; F17.210 Nicotine dependence, cigarettes, uncomplicated
CPT/HCPCS: 28810; 36415; 80048; 82948; 88305; 88311; A9270; J0690; J2250; J2405; J2704; J3010; J7120

== ENCOUNTER 2024-05-28 02:44 | Emergency (ER) | payer OTHER, SELFPAY ==
[2024-05-28 02:50] VITALS: BP 132/81; PULSE 102; RESP 14; TEMP 36.4; O2SAT 100
[2024-05-28 02:55] LABS: Glucose Point of Care 62 mg/dl (65-105)
[2024-05-28 03:40] LABS: Basophils Absolute Auto 0.1 K/mm3 (0.0-0.1); Basophils Percent Auto 0.8 % (0.2-1.2); Eosinophils Absolute Auto 0.5 K/mm3 (0-0.3); Eosinophils Percent Auto 4.3 % (0-4.4); Hematocrit 39.9 % (42.0-52.0); Hemoglobin 13.6 g/dL (14.0-18.0); Immature Granulocyte Absolute 0.08 K/mm3 (0.00-0.031); Immature Granulocyte Percent A 0.8 % (0-0.5); Lymphocytes Absolute Auto 2.48 K/mm3 (0.9-3.2); Lymphocytes Percent Auto 23.5 % (18.3-44.2); Mean Corpuscular HGB Conc 34.1 g/dl (32-36); Mean Corpuscular Hemoglobin 30.8 pg (26-34); Mean Corpuscular Volume 90.3 fl (80-100); Mean Platelet Volume 8.9 fl (7.4-10.4); Monocytes Absolute Auto 0.9 K/mm3 (0.1-0.6); Monocytes Percent Auto 8.2 % (2.6-8.5); Neutrophils Absolute Auto 6.6 K/mm3 (1.3-6.7); Neutrophils Percent Auto 62.4 % (45.5-73.1); Platelet Count Result 509 k/mm3 (150-375); Red Blood Count 4.42 M/mm3 (4.6-6.20); Red Cell Distribution Width 13.1 % (11.5-14.5); White Blood Count 10.6 K/mm3 (4.5-10.0)
[2024-05-28 03:52] LABS: INR 0.8; Partial Thromboplastin Time 21.8 Seconds (22.3-36.8)
[2024-05-28 03:55] LABS: Alanine Aminotransferase 44 U/L (6-50); Albumin Level 3.8 g/dL (3.5-5.1); Alkaline Phosphatase 103 U/L (38-126); Anion Gap 8 mmol/L (4-12); Aspartate Amino Transferase 38 U/L (17-59); Bilirubin,Total 0.5 mg/dL (0.2-1.3); Blood Urea Nitrogen 32 mg/dL (9-20); Calcium 9.6 mg/dL (8.4-10.2); Carbon Dioxide 30 mmol/L (22-30); Chloride 98 mmol/L (98-107); Estimated CRCL calculation 73 ml/min; Estimated Glomerular Filt Rate > 60; Glucose 83 mg/dL (65-110); Potassium 3.5 mmol/L (3.4-5.0); Sodium 136 mmol/L (137-145)
--- NOTE | 2024-05-28 04:23 | ED.MALEGU ---
HPI - Male Genitourinary General Chief complaint: Urogenital-Male Stated complaint: low blood sugar Time Seen by Provider: 05/28/24 03:08 Source: patient Limitations: no limitations History of Present Illness HPI Narrative: Patient is a 53-year-old male presents to the emergency department complaining of priapism. 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 Patient notes that this is been going on since approximately 6:00 a.m. yesterday making is about 22 hours however he woke up with it is unsure as to when it started while he was asleep. Patient admits to history of something similar to this in the past in which a few days ago he had it last approximately 12 hours but then went away. Patient said he often wakes up with interaction last few hours and then gets better. Patient denies any supplement use, medication uses and from insulin, erectile dysfunction medications, antipsychotics, recent injuries, recent illness. Patient notes that is been a slight discomfort in his penis since it started and it seems to be getting progressively worse. Patient states he has been able to urinate he has to go outside is there is no way for him to get into position day urinated in the toilet. Patient has any tried Sudafed. She read online that that might help and it did not, also tried to run in place and do squats without any relief. Patient notes that he has erectile dysfunction and felt like this might be a common occurrence with erectile dysfunction. Related Data Home Medications Medication Instructions Recorded Confirmed insulin aspart U-100 100 unit/mL See Rx Instructions .Route .COMPLEX 08/13/23 11/20/23 subcutaneous solution insulin glargine 100 unit/mL 30 unit subcut DAILY 08/13/23 11/20/23 subcutaneous solution (Lantus U-100 Insulin) Allergies Allergy/AdvReac Type Severity Reaction Status Date / Time No Known Allergies Allergy Verified 11/19/23 09:06 Review of Systems Review of Systems: A 10 system review of systems was completed on the patient and is negative except for what is stated in the HPI. Nursing and ancillary documentation was reviewed. [facility] Past Medical History Medical History (Updated 05/28/24 @ 05:02 by Trevon Ventura DO) Abdominal pain Pancreatitis Type 1 diabetes mellitus on insulin therapy Surgical History Surgical History (Updated 11/19/23 @ 09:31 by Frances Kan CMA) History of amputation of toe Amputation right 2nd toe. 11/01/23 Dr. Cunha History of laparoscopic cholecystectomy Social History Social History Social History: Currently lives with his girlfriend and her children. Surrogate decision maker: Vicenta Wilks, girlfriend. Code Status: Full Code. Smoking packs per day: 0.75 Smoking cigarettes per day: 15.0 Years smoked: 40 Smoking pack-years: 30.00 Smoking status: Current every day smoker Tobacco type: cigarettes Alcohol intake: current Alcohol use details: VERY RARE Substance use: current Substance use type: marijuana Other substance usage details: GUMMY PRN Lack of Transportation: YES Lack of Food: Never True Current Housing: I Have Housing Concerned About Future Housing: No Difficulty Paying Gas/Electric Bills: No Difficulty Paying for Meds: No Currently Unemployed: No Education: Associate Degree Difficulty w/ Childcare or Family Care: No Living arrangements: with friend(s) Spiritual care concerns: No Comments At time of signature, I have reviewed and agree with nursing past medical, surgical, social and family history unless otherwise noted. Please see the nursing chart for further information. There is no relevant family history pertinent to the presenting complaint. Exam Narrative: CONST: No acute distress. Well nourished. HENMT: Head is normocephalic and atraumatic. Moist mucous membranes. No posterior oropharynx erythema.
[2024-05-28] MEDS: MORPHINE SULFATE (*CRX) 4 MG/ML INJ IV PUSH (04:43)
[2024-05-28] MEDS: SODIUM CHLORIDE 0.9% IV 1,000 ML 999 ML IV CONT (04:44)
[2024-05-28] MEDS: PHENYLEPHRINE 1,000 MCG/10 ML SYRINGE 100 MCG I-CAVERN (04:50)
[2024-05-28 06:16] LABS: Fractional Inspired Oxygen 21 %; PO2 VBG 29.3 mmHg (35.0-45.0)
--- NOTE | 2024-05-28 06:20 | WPDURCON ---
Assessment and Plan Assessment and plan (1) Priapism: Code(s): N48.30 - Priapism, unspecified Status: Acute (2) Peyronie's disease: Code(s): N48.6 - Induration penis plastica Status: Acute Assessment and Plan: At the bedside I was able to achieve de tumescence with a combination of phenylepherine injections (three 1cc injections of 500 microgram/cc) and corporeal aspiration/irritation (aspiration 120cc). F/U with Dr. Maldonado to discuss options for Peyronie's disease and possible stuttering priapism. Urology Consult Note HPI Date Seen: 05/28/24 Requesting Physician: Dr. Ventura Primary Care Provider: [facility] Consult Narrative Narrative: Ulices Sosa is a 53 year old male with a longstanding history of Peyronie disease who presents to the emergency department with a persistent painful erection for 22 hours. Says this occurred without identifiable precipitating event, denying any new medications or pelvic injury. He has had several similar such episodes lasting 2-3 hours over the past 12 months but not sought any intervention until now. Review of Systems Review of Systems: All systems reviewed & are unremarkable except as noted in HPI and below PMFSH Past Medical History Medical History (Updated 05/28/24 @ 06:24 by Joes Mars MD) Abdominal pain Pancreatitis Type 1 diabetes mellitus on insulin therapy Surgical History Surgical History (Updated 11/19/23 @ 09:31 by Frances Kan CMA) History of amputation of toe Amputation right 2nd toe. 11/01/23 Dr. Cunha History of laparoscopic cholecystectomy Social History Social History Social History: Currently lives with his girlfriend and her children. Surrogate decision maker: Vicenta Wilks, girlfriend. Code Status: Full Code. Smoking packs per day: 0.75 Smoking cigarettes per day: 15.0 Years smoked: 40 Smoking pack-years: 30.00 Smoking status: Current every day smoker Tobacco type: cigarettes Alcohol intake: current Alcohol use details: VERY RARE Substance use: current Substance use type: marijuana Other substance usage details: GUMMY PRN Lack of Transportation: YES Lack of Food: Never True Current Housing: I Have Housing Concerned About Future Housing: No Difficulty Paying Gas/Electric Bills: No Difficulty Paying for Meds: No Currently Unemployed: No Education: Associate Degree Difficulty w/ Childcare or Family Care: No Living arrangements: with friend(s) Spiritual care concerns: No Meds Home Medications and Allergies Home Medications Medication Instructions Recorded Confirmed Type insulin aspart U-100 100 unit/mL See Rx Instructions .Route .COMPLEX 08/13/23 11/20/23 History subcutaneous solution insulin glargine 100 unit/mL 30 unit subcut DAILY 08/13/23 11/20/23 History subcutaneous solution (Lantus U-100 Insulin) Allergies Allergy/AdvReac Type Severity Reaction Status Date / Time No Known Allergies Allergy Verified 11/19/23 09:06 Vital Signs Vital Signs - 24 hr 05/28/24 02:50 Temperature 97.6 F Pulse Rate 102 H Respiratory Rate 14 Blood Pressure 132/81 Pulse Oximetry 100 Oxygen Delivery Room Air Exam Const: General: no acute distress Resp: Effort & Inspection: normal respiratory effort GI: Inspection: non-distended GI Palp: No abdominal tenderness and No Guarding due to palpation present (GI) Auscultation: normal bowel sounds : Penis: Yes priapism and Yes other ( Peroneus curvature with plaque at the dorsal base) Results Labs 05/28/24 03:34 05/28/24 03:34 Labs: Short CBC 05/28/24 Range/Units 03:34 WBC 10.6 H (4.5-10.0) K/mm3 Hgb 13.6 L (14.0-18.0) g/dL Hct 39.9 L (42.0-52.0) % Plt Count 509 H (150-375) k/mm3 BMP 05/28/24 03:34 Sodium 136 L Potassium 3.5 Chloride 98 Car
[2024-05-28 06:25] LABS: Device ROOM AIR
[2024-05-28 06:38] VITALS: BP 155/73; PULSE 78; RESP 14; O2SAT 100
== END 2024-05-28 06:40 | disposition home or self-care (01) ==
PROVIDERS: Urology; Emergency Provider Student in an Organized Health Care Education/Training Program
DX: N48.30 Priapism, unspecified (principal); E10.9 Type 1 diabetes mellitus without complications; F17.210 Nicotine dependence, cigarettes, uncomplicated; Z79.4 Long term (current) use of insulin; Z79.899 Other long term (current) drug therapy
CPT/HCPCS: 36415; 54235; 80053; 82803; 82948; 85025; 85610; 85730; 86850; 86900; 86901; 96361; 96374; 99283; J2270; J2371; J7030